=== PATIENT | female | born 1995 | race Caucasian/White ===

== ENCOUNTER 2021-08-23 11:09 | Emergency (ER) | payer OTHER, BC ==
[~2021-08-23] VITALS: Ht 160 cm; Wt 95.3 kg
[2021-08-23 11:19] VITALS: BP 145/84
[2021-08-23] MEDS ORDERED: LEXAPRO 10 MG T10 M2 PO (11:23)
[2021-08-23] MEDS ORDERED: BUPROPION XL300 MG PO (11:23)
[2021-08-23] MEDS ORDERED: FLEXERIL PO (11:51)
== END 2021-08-23 12:43 | disposition home or self-care (01) ==
LOC: M.ERS 11:09
DX: S06.0X0A Concussion without loss of consciousness, initial encounter (principal); S13.4XXA Sprain of ligaments of cervical spine, initial encounter; J45.909 Unspecified asthma, uncomplicated; F12.90 Cannabis use, unspecified, uncomplicated; Z79.899 Other long term (current) drug therapy; V49.9XXA Car occupant (driver) (passenger) injured in unspecified traffic accident, initial encounter; Y93.89 Activity, other specified; Y92.89 Other specified places as the place of occurrence of the external cause; Y99.8 Other external cause status